=== PATIENT | male | born 1970 | race Caucasian/White ===

== ENCOUNTER 2024-01-11 03:03 | Emergency (ER) | payer BC, OTHER ==
--- NOTE | 2024-01-11 03:45 | ED ---
General Adult HPI - General Source: patient, EMS Mode of arrival: EMS Limitations: no limitations <Davi Finney - Last Filed: 01/11/24 07:07> - General Source: patient, EMS, RN notes reviewed, old records reviewed Mode of arrival: EMS Limitations: no limitations - History of Present Illness Location: chest Radiation: non-radiation Severity scale (1-10): 4 Quality: aching Consistency: intermittent Improves with: none Worsens with: none <Wood Rios - Last Filed: 01/18/24 04:01> - General Chief complaint: Chest Pain Stated complaint: Chest Pain Time Seen by Provider: 01/11/24 03:07 - History of Present Illness Initial comments: Dictation was produced using [employer] dictation software. please excuse any grammatical, word or spelling errors. Chief Complaint: 53-year-old male with history of diabetes mellitus presents to the ER for chest pain History of Present Illness: Patient is a 53-year-old male he is a diabetic. He takes metformin for his diabetes. He has family history of myocardial infarction. Patient states that he is in his usual state of health started to have some left lower chest pain. Patient states that the pain is nonradiating. Not associate diaphoresis but was associate with nausea. Patient was worried that it was cardiac related contacted EMS was brought to the emergency department. Symptoms have been ongoing for total approximately 2 hours since prior to arrival. And follows up closely with recovery room rn due to family history of heart attacks. He has had a stress test approximately 1 year ago that was unremarkable. The ROS documented in this emergency department record has been reviewed and confirmed by me. Those systems with pertinent positive or negative responses have been documented in the HPI. All other systems are other negative and/or no ncontributory. (Davi Finney) This is a 53-year-old male who presented to the ER for chest pain and repeat troponin now here in the emergency department (Wood Rios) - Related Data Home Medications Medication Instructions Recorded Confirmed Aspirin 81 mg PO DAILY 01/28/15 01/28/15 Liraglutide [Victoza 3-Beau] 1.8 mg SQ DAILY 01/28/15 01/28/15 Simvastatin [Zocor] 10 mg PO HS 01/28/15 01/28/15 metFORMIN HCL [Glucophage Xr] 3 tab PO PC-SUPPER 01/28/15 01/28/15 Previous Rx's Medication Instructions Recorded Azithromycin [Zithromax] 250 mg PO DIRECTED #6 tab 01/28/15 guaiFENesin-DM 100-10MG/5ML 10 ml PO BID #10 cup 01/28/15 [Robitussin Dm] Allergies Allergy/AdvReac Type Severity Reaction Status Date / Time codeine Allergy Rash/Hives Verified 01/11/24 03:08 Review of Systems ROS Other: All systems not noted in ROS Statement are negative. <Davi Finney - Last Filed: 01/11/24 07:07> ROS Other: All systems not noted in ROS Statement are negative. <Wood Rios - Last Filed: 01/18/24 04:01> ROS Statement: Those systems with pertinent positive or pertinent negative responses have been documented in the HPI. Past Medical History Past Medical History: Diabetes Mellitus History of Any Multi-Drug Resistant Organisms: None Reported Past Surgical History: Cholecystectomy, Ear Surgery Past Psychological History: No Psychological Hx Reported Smoking Status: Never smoker Past Alcohol Use History: Rare Past Drug Use History: None Reported <Davi Finney - Last Filed: 01/11/24 07:07> General Exam Limitations: no limitations <Davi Finney - Last Filed: 01/11/24 07:07> General appearance: alert, in no apparent distress Head exam: Present: atraumatic, normocephalic, normal inspection Eye exam: Present: normal appearance, PERRL, EOMI. Absent: scleral icterus, conjunctival injection, periorbital swelling ENT exam: Present: normal exam, mucous membranes moist Neck exam: Present: normal inspection. Absent: tenderness, meningismus, lymphadenopathy Respiratory exam: Present: normal lung sounds bilaterally. Absent: respiratory distress, wheezes, rales, rhonchi, stridor Cardiovascular Exam: Present: regular rate, normal rhythm, normal heart sounds. Absent: systolic murmur, diastolic murmur, rubs, gallop, clicks GI/Abdominal exam: Present: soft, normal bowel sounds. Absent: distended, tenderness, guarding, rebound, rigid Extremities exam: Present: normal inspection, full ROM, normal capillary refill. Absent: tenderness, pedal edema, joint swelling, calf tenderness Back exam: Present: normal inspection Neurological exam: Present: alert, oriented X3, CN II-XII intact Psychiatric exam: Present: normal affect, normal mood Skin exam: Present: warm, dry, intact, normal color. Absent: rash <Wood Rios - Last Filed: 01/18/24 04:01> - General Exam Comments Initial Comments: PHYSICAL EXAM: General Impression: Alert and oriented x3, not in acute distress HEENT: Normocephalic atraumatic, extra-ocular movements intact, pupils equal and reactive to light bilaterally, mucous membranes moist. Cardiovascular: Heart regular rate and rhythm Chest: Able to complete full sentences, no retractions, no tachypnea Abdomen: abdomen soft, non-tender, non-distended, no organomegaly Musculoskeletal: Pulses present and equal in all extremities, no peripheral edema Motor: no focal deficits noted Neurological: CN II-XII grossly intact, no focal motor or sensory deficits noted Skin: Intact with no visualized rashes Psych: Normal affect and mood (Davi Finney) Course <Davi Finney - Last Filed: 01/11/24 07:07> <Wood Rios - Last Filed: 01/18/24 04:01> Vital Signs 01/11/24 01/11/24 01/11/24 03:05 04:08 05:08 Temperature 98.6 F Pulse Rate 62 71 73 Respiratory 18 18 18 Rate Blood Pressure 125/72 145/88 127/70 O2 Sat by Pulse 97 96 98 Oximetry 01/11/24 01/11/24 06:08 07:56 Temperature 98.0 F Pulse Rate 74 80 Respiratory 18 16 Rate Blood Pressure 150/78 146/87 O2 Sat by Pulse 97 97 Oximetry - Reevaluation(s) Reevaluation #1: 01/11/24 05:49 And imaging were reviewed. Labs are within acceptable limits. X-ray shows no acute processes. Disposition also discussed with patient. He did not want to be admitted to observation for further testing despite it being the disposition. He however was agreeable to drawing a second troponin 3 hours after his first level. He is reevaluated bedside at 5:49 AM on to be stable condition. Patient well-appearing. Denies any chest pain. (Davi Finney) Reevaluation #2: Symptoms unchanged (Wood Rios) Reevaluation #3: Informed of results and questions answered (Wood Rios) EKG Findings - EKG Comments: EKG Findings:: My EKG interpretation: Ventricular rate 63, sinus rhythm,. 144, QRS 108, QTc 413. No LA prolongation, no QTC prolongation, no ST or T-wave changes noted. Overall, this EKG is unremarkable <Davi Finney - Last Filed: 01/11/24 07:07> - EKG Comments: EKG Findings:: EKG is sinus 63 LA 144 QRS 108 QTc 413 - EKG Results: EKG: interpreted by ERMD <Wood Rios - Last Filed: 01/18/24 04:01> Medical Decision Making - Lab Data Result diagrams: 01/11/24 03:05 01/11/24 03:05 <Davi Finney - Last Filed: 01/11/24 07:07> - Lab Data Result diagrams: 01/11/24 03:05 01/11/24 03:05 - Radiology Data Radiology results: report reviewed (CXR is negative for acute disease), image reviewed <Wood Rios - Last Filed: 01/18/24 04:01> - Medical Decision Making Was pt. sent in by a medical professional or institution (LEONARDO Armstrong, STRATEGIC ALLIANCES MANAGER, urgent care, hospital, or senior living...) When possible be specific @ -No Did you speak to anyone other than the patient for history (EMS, parent, family, police, friend...)? What history was obtained from this source @ -No Did you review nursing and triage notes (agree or disagree)? Why? @ -I reviewed and agree with nursing and triage notes Were old charts reviewed (outside hosp., previous admission, EMS record, old EKG, old radiological studies, urgent care reports/EKG's, senior living records)? Report findings @ -No old charts were reviewed Differential Diagnosis (chest pain, altered mental status, abdominal pain women, abdominal pain men, vaginal bleeding, musculoskeletal, weakness, fever, dyspnea, syncope, headache, dizziness, GI bleed, back pain, seizure, CVA, palpatations, mental health)? @ -Differential Chest Pain: Stable Angina, Unstable Angina, STEMI, NSTEMI Aortic Dissection, Pneumothorax, Musculoskeletal, Esophageal Spasm GERD, Cholecystitis, Pancreatitis, Zoster, this is not meant to be an all-inclusive list. EKG interpreted by me (3pts min.). @ -See above X-rays interpreted by me (1pt min.). @ -Chest x-ray is nonacute CT interpreted by me (1pt min.). @ -None done U/S interpreted by me (1pt. min.). @ -None done What testing was considered but not performed or refused? (CT, X-rays, U/S, labs)? Why? @ -None What meds were considered but not given or refused? Why? @ -None Was smoking cessation discussed for >3mins.? @ -No Were there social determinants of health that impacted care today? How? (Homelessness, low income, unemployed, alcoholism, drug addiction, transport ation, low edu. Level, literacy, decrease access to med. care, [facility], rehab)? @ -No Was there de-escalation of care discussed even if they declined (Discuss DNR or withdrawal of care, Hospice)? DNR status @ -No What co-morbidities impacted this encounter? (DM, HTN, Smoking, COPD, CAD, Cancer, CVA, ARF, Chemo, Hep., AIDS, mental health diagnosis, sleep apnea, morbid obesity)? @ -Diabetes Was patient admitted / discharged? Hospital course, mention meds given and route, prescriptions, significant lab abnormalities, going to OR and other pertinent info. @ -53-year-old male presents to the emergency department for chest pain. His symptoms are atypical with typical features. Vital signs upon arrival are within acceptable limits. EKG is unremarkable. Patient is considered high risk due to age, history of diabetes and family history. His initial troponin is negative. Patient was encouraged to be admitted observation for cardiac monitoring, serial troponins and cardiology consultation. Patient refused he however was agreeable for second troponin. Patient care signed out to Dr. Hiro Lloyd at 7:00 AM for follow-up of pending troponin. Patient given aspirin. Did you discuss the management of the patient with other professionals (professionals i.e. , PA, STRATEGIC ALLIANCES MANAGER, lab, RT, psych nurse, social services designee, film librarian, teacher, agricultural loan officer, leather case finisher)? Give summary @ -No Was critical care preformed (if so, how long)? @ -No Undiagnosed new problem with uncertain prognosis? @ -No Drug Therapy requiring intensive monitoring for toxicity (Heparin, Nitro, Insulin, Cardizem)? @ -No Were any procedures done? @ -No Diagnosis/symptom? Acute, or Chronic, or Acute on Chronic? Uncomplicated (without systemic symptoms) or Complicated (systemic symptoms)? @ -Chest pain (Davi Finney) 53 male with persistent chest pain here in the ER, patient feels well here in the ER and can be discharged home (Wood Rios) - Lab Data Lab Results 01/11/24 01/11/24 01/11/24 Range/Units 03:05 03:05 03:05 WBC 6.4 (3.8-10.6) k/uL RBC 4.99 (4.30-5.90) m/uL Hgb 14.8 (13.0-17.5) gm/dL Hct 44.9 (39.0-53.0) % MCV 90.1 (80.0-100.0) fL MCH 29.6 (25.0-35.0) pg MCHC 32.9 (31.0-37.0) g/dL RDW 13.1 (11.5-15.5) % Plt Count 141 L (150-450) k/uL MPV 9.9 Neutrophils % 66 % Lymphocytes % 25 % Monocytes % 6 % Eosinophils % 1 % Basophils % 0 % Neutrophils # 4.2 (1.3-7.7) k/uL Lymphocytes # 1.6 (1.0-4.8) k/uL Monocytes # 0.4 (0-1.0) k/uL Eosinophils # 0.1 (0-0.7) k/uL Basophils # 0.0 (0-0.2) k/uL PT 11.0 (10.0-12.5) sec INR 1.0 (<1.2) APTT 21.6 L (22.0-30.0) sec Sodium 137 (137-145) mmol/L Potassium 4.3 (3.5-5.1) mmol/L Chloride 101 (98-107) mmol/L Carbon Dioxide 26 (22-30) mmol/L Anion Gap 10 mmol/L BUN 16 (9-20) mg/dL Creatinine 0.76 (0.66-1.25) mg/dL Est GFR (CKD-EPI)AfAm >90 (>60 ml/min/1.73 sqM) Est GFR (CKD-EPI)NonAf >90 (>60 ml/min/1.73 sqM) Glucose 193 H (74-99) mg/dL Calcium 9.6 (8.4-10.2) mg/dL Magnesium 1.8 (1.6-2.3) mg/dL Total Bilirubin 1.5 H (0.2-1.3) mg/dL AST 27 (17-59) U/L ALT 25 (4-49) U/L Alkaline Phosphatase 51 (38-126) U/L Troponin I (0.000-0.034) ng/mL Total Protein 7.3 (6.3-8.2) g/dL Albumin 4.7 (3.5-5.0) g/dL 01/11/24 01/11/24 Range/Units 03:05 06:21 WBC (3.8-10.6) k/uL RBC (4.30-5.90) m/uL Hgb (13.0-17.5) gm/dL Hct (39.0-53.0) % MCV (80.0-100.0) fL MCH (25.0-35.0) pg MCHC (31.0-37.0) g/dL RDW (11.5-15.5) % Plt Count (150-450) k/uL MPV Neutrophils % % Lymphocytes % % Monocytes % % Eosinophils % % Basophils % % Neutrophils # (1.3-7.7) k/uL Lymphocytes # (1.0-4.8) k/uL Monocytes # (0-1.0) k/uL Eosinophils # (0-0.7) k/uL Basophils # (0-0.2) k/uL PT (10.0-12.5) sec INR (<1.2) APTT (22.0-30.0) sec Sodium (137-145) mmol/L Potassium (3.5-5.1) mmol/L Chloride (98-107) mmol/L Carbon Dioxide (22-30) mmol/L Anion Gap mmol/L BUN (9-20) mg/dL Creatinine (0.66-1.25) mg/dL Est GFR (CKD-EPI)AfAm (>60 ml/min/1.73 sqM) Est GFR (CKD-EPI)NonAf (>60 ml/min/1.73 sqM) Glucose (74-99) mg/dL Calcium (8.4-10.2) mg/dL Magnesium (1.6-2.3) mg/dL Total Bilirubin (0.2-1.3) mg/dL AST (17-59) U/L ALT (4-49) U/L Alkaline Phosphatase (38-126) U/L Troponin I <0.012 <0.012 (0.000-0.034) ng/mL Total Protein (6.3-8.2) g/dL Albumin (3.5-5.0) g/dL Disposition Time of Disposition: 07:09 <Davi Finney - Last Filed: 01/11/24 07:07> Is patient prescribed a controlled substance at d/c from ED?: No <Wood Rios - Last Filed: 01/18/24 04:01> Clinical Impression: Chest pain Disposition: HOME SELF-CARE Condition: Fair Instructions (If sedation given, give patient instructions): Chest Pain (ED) Referrals: None,Stated [Primary Care Provider] - 1-2 days
[2024-01-11 04:05] LABS: Basophils % (A) 0 %; Eosinophils # (A) 0.1 k/uL (0-0.7); Eosinophils % (A) 1 %; HCT 44.9 % (39.0-53.0); HGB 14.8 gm/dL (13.0-17.5); Lymphocytes # (A) 1.6 k/uL (1.0-4.8); Lymphocytes % (A) 25 %; MCH 29.6 pg (25.0-35.0); MCHC 32.9 g/dL (31.0-37.0); MCV 90.1 fL (80.0-100.0); Mean Platelet Volume 9.9; Monocytes # (A) 0.4 k/uL (0-1.0); Monocytes % (A) 6 %; Neutrophils # (A) 4.2 k/uL (1.3-7.7); Neutrophils % (A) 66 %; Platelet Count 141 k/uL (150-450); RBC 4.99 m/uL (4.30-5.90); RDW 13.1 % (11.5-15.5); WBC 6.4 k/uL (3.8-10.6)
[2024-01-11 04:16] LABS: ALT 25 U/L (4-49); AST 27 U/L (17-59); African American GFR (CKD) >90 (>60 ml/min/1.73 sqM); Albumin 4.7 g/dL (3.5-5.0); Alkaline Phosphatase 51 U/L (38-126); Anion Gap 10 mmol/L; Blood Urea Nitrogen 16 mg/dL (9-20); Calcium 9.6 mg/dL (8.4-10.2); Carbon Dioxide 26 mmol/L (22-30); Chloride 101 mmol/L (98-107); Glucose 193 mg/dL (74-99); Magnesium 1.8 mg/dL (1.6-2.3); Non-African American GFR(CKD) >90 (>60 ml/min/1.73 sqM); Potassium 4.3 mmol/L (3.5-5.1); Sodium 137 mmol/L (137-145); Total Bilirubin 1.5 mg/dL (0.2-1.3); Total Protein 7.3 g/dL (6.3-8.2)
[2024-01-11 04:40] LABS: Partial Thromboplastin Time 21.6 sec (22.0-30.0)
--- NOTE | 2024-01-11 06:56 | XR ---
EXAM: XR Chest, 2 Views CLINICAL HISTORY: Chest Pain TECHNIQUE: Frontal and lateral views of the chest. COMPARISON: 01/28/15 FINDINGS: Lungs: Underinflated but clear. Pleural space: Unremarkable. Mediastinum: Unremarkable. Normal mediastinal contour. Bones/joints: No acute findings. IMPRESSION: No acute findings.
[2024-01-11 07:57] VITALS: BP 146/87; PULSE 80; RESP 16; TEMP 98
== END 2024-01-11 07:58 | disposition home or self-care (01) ==
LOC: EC 03:03
DX: R07.89 Other chest pain (principal); E11.9 Type 2 diabetes mellitus without complications; Z79.84 Long term (current) use of oral hypoglycemic drugs; Z88.5 Allergy status to narcotic agent
CPT/HCPCS: 36415; 71046; 80053; 83735; 84484; 85025; 85610; 85730; 93005; 99285